=== PATIENT | female | born 1955 | race Caucasian/White ===

== ENCOUNTER 2022-06-06 15:01 | Emergency (ER) | payer MEDICARE, SELFPAY ==
--- NOTE | 2022-06-06 15:16 | EXP.UTC ---
Discharge Plan Disposition Patient Disposition: Home, Self-Care Condition: Good Prescriptions Prescriptions: New benzonatate [benzonatate] 100 mg capsule 100 mg PO TIDP PRN (Reason: Cough) Qty: 30 0RF ondansetron 4 mg Tablet,Disintegrating 4 mg PO Q8H PRN (Reason: Nausea) Qty: 20 0RF Referrals Follow up/Referrals: Maira Perez [Primary Care Provider] - See instructions Activity Restrictions/Add. Instructions Additional Instructions/Restrictions: Drink plenty of fluids. Take tylenol or ibuprofen for pain or fever. Take the medications as directed. Follow up with your regular doctor. GO TO THE ER FOR ANY WORSENING SYMPTOMS Quarantine until you know the results of your covid-19 test. Notify your school or workplace of your results and follow their instructions regarding return to work/school. Clinical Impressions Clinical Impression: Acute viral syndrome Discharge ED Provider: Kendall Daniels [place] HPI General Stated complaint: fever, chills, soa Time Seen by Provider: 06/06/22 15:39 History of Present Illness Provider Complaint: She states that for the past 2 days she has had body aches, chills, fever, a nonproductive cough, and n/v/d. She denies any known exposure to covid-19. Related Data Previous Rx's Medication Instructions Recorded benzonatate 100 mg capsule 100 mg PO TIDP PRN Cough #30 caps 06/06/22 ondansetron 4 mg disintegrating 4 mg PO Q8H PRN Nausea #20 tabs 06/06/22 tablet Allergies Allergy/AdvReac Type Severity Reaction Status Date / Time cefoxitin [From Mefoxin] Allergy Verified 06/06/22 15:28 [facility] Social History Smoking Status: Never smoker alcohol intake: never current occupational status: employed ROS Obtained: Yes All systems reviewed & no additional complaints except as documented Constitutional Constitutional: Reports chills and Reports fever(s) Eyes Eyes: Denies eye discharge ENT Ears, Nose, Mouth, and Throat: Reports as per HPI Cardiovascular Cardiovascular: Denies chest pain Respiratory Respiratory: Denies chest congestion and Reports cough Gastrointestinal Gastrointestingal: Reports nausea; Denies abdominal pain, constipation, cramping, diarrhea or vomiting Musculoskeletal Musculoskeletal: Denies arthralgias Integumentary/Breasts Skin/Breast: Denies rash Neurologic Neurologic: Denies paresthesias Physical Exam General General appearance: alert and in no apparent distress Head Head exam: atraumatic, normocephalic and normal inspection Eye Eye exam: Present normal appearance, PERRL and EOMI ENT ENT exam: Present normal exam, normal oropharynx, mucous membranes moist, TM's normal bilaterally and normal external ear exam Neck Neck exam: Present normal inspection, full ROM and trachea midline; Absent meningismus or lymphadenopathy Chest Chest inspection: Present normal inspection and symmetric chest wall rise; Absent tenderness Respiratory Respiratory exam: Present normal lung sounds bilaterally; Absent respiratory distress Cardiovascular Cardiovascular exam: Present regular rate and normal rhythm; Absent JVD Abdominal Exam Abdominal exam: Present soft and normal bowel sounds; Absent distention, tenderness or guarding Extremities Exam Extremities exam: Present normal inspection, full ROM and normal capillary refill; Absent calf tenderness Back Exam Back exam: Present normal inspection; Absent tenderness Neurological Exam Neurological exam: Present alert and oriented X3 Psychiatric Psychiatric exam: Present normal affect and normal mood Skin Skin exam: Present warm, dry, intact and normal color Lymphatic Lymphatic Findings: no adenopathy Medical Decision Making Medical Records Medical records reviewed: No I reviewed the patient's medical records. Jluis Inquiry Pt receiving controlled substance: No
[2022-06-06 15:24] VITALS: BP 121/81; PULSE 99; RESP 16; TEMP 37.1; O2SAT 97; BMI 20.3
--- NOTE | 2022-06-06 16:01 | XR_ITS ---
PROCEDURE INFORMATION: Exam: XR Chest Exam date and time: 06/06/2022 3:59 PM Age: 66 years old Clinical indication: Cough and fever; Additional info: Short of breath, cough, fever TECHNIQUE: Imaging protocol: Radiologic exam of the chest. Views: 2 views. COMPARISON: No relevant prior studies available. FINDINGS: Lungs: Unremarkable. No consolidation. Probable granuloma left perihilar region. Could not entirely exclude vessel seen on end. Pleural spaces: Unremarkable. No pleural effusion. No pneumothorax. Heart/Mediastinum: Unremarkable. No cardiomegaly. Bones/joints: Unremarkable. IMPRESSION: No acute findings.
[2022-06-06 16:13] LABS: UTC Strep Screen (Rapid) Negative (Negative)
[2022-06-06 16:41] VITALS: BP 121/81; PULSE 99; RESP 16; TEMP 37.1
== END 2022-06-06 16:42 | disposition home or self-care (01) ==
PROVIDERS: Emergency Provider Nurse Practitioner Family; PCP Family Medicine
DX: B34.9 Viral infection, unspecified (principal); R05.9 Cough, unspecified; R50.9 Fever, unspecified; M79.10 Myalgia, unspecified site; R11.2 Nausea with vomiting, unspecified; R19.7 Diarrhea, unspecified; Z20.822 Contact with and (suspected) exposure to COVID-19; Z79.899 Other long term (current) drug therapy; Z88.8 Allergy status to other drugs, medicaments and biological substances
CPT/HCPCS: 71046; 87880; 99213; C9803; G0463; U0003; U0005